=== PATIENT | female | born 1970 | race Caucasian/White ===

== ENCOUNTER 2020-04-05 10:53 | Emergency (ER) | payer OTHER, SELFPAY ==
[2020-04-05 11:04] VITALS: BP 134/74; PULSE 75; RESP 20; TEMP 37.2; O2SAT 99
--- NOTE | 2020-04-05 11:06 | ED.EAR ---
HPI - Ear Problem General Chief complaint: Ear Stated complaint: R EARACHE/CLOGGED Source: patient and RN notes reviewed Limitations: no limitations History of Present Illness HPI Narrative: The obese patient, previously mostly healthy, presents with right ear discomfort. Patient states she has 1/2-week worsening of right ear discomfort, symptoms are mild unrelieved with peroxide preparations. Has had previous otitis externa, and ceruminosis. No discharge, redness, fever, sore throat Related Data Allergies Allergy/AdvReac Type Severity Reaction Status Date / Time ampicillin Allergy Unknown Verified 08/27/18 14:15 Penicillins Allergy Unknown Verified 08/27/18 14:15 Sulfa (Sulfonamide Allergy Unknown Verified 08/27/18 14:15 Antibiotics) Canned Fish Allergy Unknown Uncoded 08/27/18 14:15 SALICYLATES Allergy Unknown Uncoded 08/27/18 14:15 seafood, vegetables Allergy Unknown Uncoded 01/04/03 12:18 SHELLFISH Allergy Unknown Uncoded 08/27/18 14:15 Review of Systems Review of Systems: Narrative: General/Constitutional: No weight loss,fever Eyes: N0: Redness,discharge Ears/Nose/Throat: No: Epistaxis,ear discharge Respiratory: Denies: Hemoptysis Gastrointestinal: No Vomiting, Bleeding-rectal Skin: No Lumps, eruption Neurologic: No Focal Weakness,Sz Hematologic: Denies: Petechiae/Purpura Psychiatric: No: Suicida ideationl All Other Systems: Reviewed and Negative PMFSH Comments At time of signature, agree with nursing past medical, surgical, social and family history. There is no relevant family history pertinent to the presenting complaint Exam Narrative: Exam Narrative: Appearance: obese/ Well nourished, No distress, no Conjunctiva injection Ears: Right EAC with cerumen, left external ear normal, Auditory canal normal Nose: Normal nose, Nares clear Mouth/Throat: Normal appearing, Normal lips, supple, Respiratory: Airway patent, No respiratory distress Skin: Warm, Dry Neurological: A&O x3, Normal affect Course Vital Signs Vital signs: Vital Signs Temperature 98.9 F 04/05/20 11:04 Pulse Rate 75 04/05/20 11:04 Respiratory Rate 20 04/05/20 11:04 Blood Pressure 134/74 04/05/20 11:04 Pulse Oximetry 99 04/05/20 11:04 Temperature 98.9 F 04/05/20 11:04 Pulse Rate 75 04/05/20 11:04 Respiratory Rate 20 04/05/20 11:04 Blood Pressure 134/74 04/05/20 11:04 Pulse Oximetry 99 04/05/20 11:04 Procedures Ear Wax Removal Right Ear: Ear Wax Removal Date: 04/05/20 Cerumenolytic Used: other (Peroxide and water) Results: Re-examined: cerumen removed completely TM Examination: TM(s) erythematous Ear Canal Exam: atraumatic Patient Tolerated Procedure: well Complications: no problems Technique: ear canal irrigated Medical Decision Making Vital Signs Vital Signs: Vital Signs Temperature 98.9 F 04/05/20 11:04 Pulse Rate 75 04/05/20 11:04 Respiratory Rate 20 04/05/20 11:04 Blood Pressure 134/74 04/05/20 11:04 Pulse Oximetry 99 04/05/20 11:04 Temperature 98.9 F 04/05/20 11:04 Pulse Rate 75 04/05/20 11:04 Respiratory Rate 04/05/20 11:04 Blood Pressure 134/74 04/05/20 11:04 Pulse Oximetry 99 04/05/20 11:04 Discharge Plan Discharge Clinical Impression: Impacted ear wax Qualifiers: Laterality: right Qualified Code(s): H61.21 - Impacted cerumen, right ear Patient Disposition: Home, Self-Care Condition: Stable Prescriptions: New [id number]-FW 3.5-10,000-1 mg/mL-unit/mL-% solution 4 drp RIGHT EAR Q8H Qty: 10 RF: 0 Follow-up/Referrals: PHYSICIAN NOT ON STAFF,NONSTAFF [Primary Care Provider] -
== END 2020-04-05 11:39 | disposition home or self-care (01) ==
PROVIDERS: Emergency Provider Emergency Medicine
DX: H61.21 Impacted cerumen, right ear (principal); E11.9 Type 2 diabetes mellitus without complications; E28.2 Polycystic ovarian syndrome
CPT/HCPCS: 69209; 99213; G0463

== ENCOUNTER 2021-12-30 13:04 | Emergency (ER) | payer BC, SELFPAY ==
--- NOTE | ~2021-12-30 | XR_ITS ---
XR chest 2V DATE: 12/30/2021 13:50 INDICATION: Productive cough for 3 days. Nonsmoker. TECHNIQUE: 2 views COMPARISON: August 27, 2018 PA and lateral chest FINDINGS: Normal heart size. No hilar or mediastinal enlargement. No pulmonary infiltrate or consolid ation, pleural effusion or pulmonary vascular congestion or pneumothorax is detected. IMPRESSION: No active cardiopulmonary disease Reviewed, dictated and finalized at location A.
[2021-12-30 13:11] VITALS: BP 135/98; PULSE 92; RESP 18; TEMP 36.6; O2SAT 99
--- NOTE | 2021-12-30 13:25 | ED.URI ---
HPI - URI/Sore Throat General Chief Complaint: Upper Respiratory Infection Stated Complaint: uri Source: patient and RN notes reviewed Mode of arrival: ambulatory Limitations: no limitations History of Present Illness HPI Narrative: 51-year-old female presented for complaint of cough, sinus congestion, sore throat, body aches, diarrhea, states temp 103.2. Denies n/v or wheezing.patient tested negative for COVID and flu the day her symptoms started. She is taking [id number] DayQuil and Advil for symptoms. She denies sick contacts. She is not vaccinated for COVID or flu. MD elicited complaint: cough Related Data Allergies Allergy/AdvReac Type Severity Reaction Status Date / Time ampicillin Allergy Unknown Anaphylaxis Verified 12/30/21 13:20 Penicillins Allergy Unknown Anaphylaxis Verified 12/30/21 13:20 Sulfa (Sulfonamide Allergy Unknown Anaphylaxis Verified 12/30/21 13:20 Antibiotics) Canned Fish Allergy Unknown Anaphylaxis Uncoded 12/30/21 13:20 SALICYLATES Allergy Unknown Anaphylaxis Uncoded 12/30/21 13:20 seafood, vegetables Allergy Unknown Anaphylaxis Uncoded 12/30/21 13:20 SHELLFISH Allergy Unknown Anaphylaxis Uncoded 12/30/21 13:20 Review of Systems Review of Systems: CONSTITUTIONAL: Endorses malaise, chills, sweats, fever EYES: Denies visual changes, redness, or discharge ENT: Reports rhinorrhea, congestion, sinus pain CARDIOVASCULAR: Denies chest pain, palpitations, edema RESPIRATORY: Reports cough, post nasal drainage. Denies dyspnea GASTROINTESTINAL: Denies abdominal pain, nausea, vomiting SKIN: Denies rash or itching MUSCULOSKELETAL: Endorses myalgia Exam Narrative: GENERAL: Ill-appearing, nontoxic EYES: conjunctivae clear ENT: Mucous membranes moist. TMs and canals erythematous with dull light reflex bilaterally; no tragal tenderness. Oropharynx erythematous without lesions or exudate, no drooling, no hoarseness, no trismus, uvula midline. CHEST: Clear to auscultation, breath sounds equal. No wheezing, rhonchi, rales, or stridor. HEART: Regular rate and rhythm. No murmur heard. SKIN: Warm, dry, no rash. NEURO: Alert and oriented x3. PSYCH: Normal mood and affect Course Course Emergency Course: Patient is aware of diagnosis, understands and agrees to treatment plan. Anticipatory guidance given. Patient agrees to follow-up as directed and is aware of reasons to seek care at the emergency department. Portions of this record may have been created with voice recognition software Level of Care: Express Care Visit Vital Signs Vital signs: Vital Signs Temperature 97.8 F 12/30/21 13:11 Pulse Rate 92 12/30/21 13:11 Respiratory Rate 18 12/30/21 13:11 Blood Pressure 135/98 H 12/30/21 13:11 Pulse Oximetry 99 12/30/21 13:11 Oxygen Delivery Room Air 12/30/21 13:11 Temperature 97.8 F 12/30/21 13:11 Pulse Rate 92 12/30/21 13:11 Respiratory Rate 18 12/30/21 13:11 Blood Pressure 135/98 H 12/30/21 13:11 Pulse Oximetry 99 12/30/21 13:11 Oxygen Delivery Room Air 12/30/21 13:11 reviewed MDM - URI/Sore Throat MDM Narrative Medical decision making narrative: cxr reviewed with patient, unremarkable. COVID test negative. She is advised on supportive treatment and follow-up with PCP. stable and appropriate for outpt treatment. Verbalizes understanding Differential Diagnosis Differential diagnosis: Likely upper respiratory infection, sinusitis and viral infection Lab Data Labs: Lab Results 12/30/21 Range/Units 13:35 POC SARS CoV-2 Ag Negative (Negative) Imaging Data Radiologist's impression: Ordering Physician: Shanta Fowler APRN Date of Service: 12/30/21 Procedure(s): XR chest 2V Accession Number(s): [id number] cc: Shanta Fowler APRN; UNKNOWN,DOCTOR~ XR chest 2V DATE: 12/30/2021 13:50 INDICATION: Productive cough for 3 days. Nonsmoker.? TECHNIQUE: 2 views? COMPARISON: August 27, 2018 PA and lateral ches
== END 2021-12-30 14:18 | disposition home or self-care (01) ==
PROVIDERS: Emergency Provider Nurse Practitioner Family
DX: J06.9 Acute upper respiratory infection, unspecified (principal); Z20.822 Contact with and (suspected) exposure to COVID-19; Z28.310 Unvaccinated for COVID-19
CPT/HCPCS: 71046; 87426; 99213; C9803; G0463

== ENCOUNTER 2022-07-30 10:08 | Emergency (ER) | payer OTHER, SELFPAY ==
--- NOTE | 2022-07-30 10:18 | ED.URI ---
HPI - URI/Sore Throat General Chief Complaint: Upper Respiratory Infection Stated Complaint: Sore Throat/ Cough Time Seen by Provider: 07/30/22 10:39 Source: patient, RN notes reviewed and old records reviewed Mode of arrival: ambulatory Limitations: no limitations History of Present Illness HPI Narrative: 51-year-old female presents to the [facility] with complaints of sore throat and cough for 10-14 days Quit smoking about a month ago Denies any chest pain or shortness of breath. Denies any abdominal pain. Denies fevers. Reports that everyone her house has similar symptoms, states her is a just been going on a little bit longer Related Data Allergies Allergy/AdvReac Type Severity Reaction Status Date / Time ampicillin Allergy Unknown Anaphylaxis Verified 12/30/21 13:20 Penicillins Allergy Unknown Anaphylaxis Verified 12/30/21 13:20 Sulfa (Sulfonamide Allergy Unknown Anaphylaxis Verified 12/30/21 13:20 Antibiotics) Canned Fish Allergy Unknown Anaphylaxis Uncoded 12/30/21 13:20 SALICYLATES Allergy Unknown Anaphylaxis Uncoded 12/30/21 13:20 seafood, vegetables Allergy Unknown Anaphylaxis Uncoded 12/30/21 13:20 SHELLFISH Allergy Unknown Anaphylaxis Uncoded 12/30/21 13:20 Review of Systems Review of Systems: All systems reviewed & are unremarkable except as noted in HPI and below Constitutional: Constitutional: Reports no additional constitutional complaints Eyes: Eyes: Reports no additional eye complaints ENT: Reports as per HPI and Reports sore throat Cardiovascular: Cardiovascular: Reports no additional cardiovascular complaints, Denies chest pain and Denies dyspnea Respiratory: Respiratory: Reports as per HPI, Denies chest congestion, Reports cough, Denies dyspnea and Denies wheezing Gastrointestinal: Gastrointestinal: Reports no additional gastrointestinal complaints, Denies abdominal pain, Denies nausea and Denies vomiting Musculoskeletal: Musculoskeletal: Reports no additional musculoskeletal complaints Integumentary/Breasts: Skin/Breast: Reports system reviewed and no additional complaints, except as docu Neurologic: Reports system reviewed and no additional complaints, except as documented Psychiatric: Psychiatric: Reports no additional psychiatric complaints Allergic/Immunologic: Allergic/Immunologic: Reports no additional allergic/immunologic complaints PMFSH Comments At the time of my signature, I reviewed and agree with the nursing past medical, surgical, social, and family history. There is no relevant family history pertinent to the patient complaint. Exam Const: General: cooperative, healthy appearing, comfortable, no acute distress, well developed, alert and well nourished Nutritional Appearance: well nourished Orientation/consciousness: patient oriented x3 Limitations: no limitations HENMT: Head: normal to inspection Ears: hearing grossly normal bilaterally and external ears normal Face/Nose/Sinus: Normal external nose present, Normal nares present, Normal nasal mucous membranes and turbinates present and normal facial exam Face and sinus: normal facial exam Mouth: Yes Normal oral and palatal mucosa present, Yes lip normal and Yes moist mucous membranes Throat: posterior oropharynx normal and uvula midline Eyes: General: appearance normal, both eyes and all related structures Alignment and Position: alignment normal Periorbital: periorbital findings normal Conjunctivae: conjunctivae normal Pupils: Equal, round and reactive pupils present EOM: EOMs intact bilaterally Neck: Neck: normal visual inspection, full ROM, no lymphadenopathy and no meningeal signs Chest: Chest palpation & inspection: normal inspection of the chest Resp: Effort & Inspection: normal respiratory effort and able to speak in complete sentences Auscultation: clear to auscultation bilaterally, no crackles, no rales, no rhonchi, no wheezes and diminished lung sounds bilateral in the lower lung [place] Other: Strong cough
[2022-07-30 10:20] VITALS: BP 140/88; PULSE 71; RESP 16; TEMP 36.6; O2SAT 98
[2022-07-30 10:21] VITALS: BP 140/88; PULSE 71; RESP 16; TEMP 36.6; O2SAT 98
== END 2022-07-30 10:55 | disposition home or self-care (01) ==
PROVIDERS: Emergency Provider Nurse Practitioner
DX: J40 Bronchitis, not specified as acute or chronic (principal)
CPT/HCPCS: 99213; G0463

== ENCOUNTER 2022-09-03 17:01 | Emergency (ER) | payer OTHER, SELFPAY ==
[2022-09-03 17:21] VITALS: BP 149/81; PULSE 94; RESP 16; TEMP 37.4; O2SAT 98
--- NOTE | 2022-09-03 17:38 | ED.SKABFB ---
HPI - Skin/Abscess/Foreign Bdy General Chief complaint: Skin/Abscess/Foreign Body Stated complaint: uri/boil under armpit Time Seen by Provider: 09/03/22 17:38 Source: patient Mode of arrival: ambulatory Limitations: no limitations History of Present Illness HPI narrative: 51-year-old female presents with complaint area to right axilla that has been off and on draining since January. She initially saw her primary care physician for this complaint and was told possible boil. Was given antibiotic and it cleared up. States since then she has taken at least 3 antibiotics for the drainage. She states she is now having increased pain to her right upper arm possible swelling. She states she was postop follow-up with her primary care physician if it had not improved she has not done that. All systems reviewed and negative except as noted above. Related Data Allergies Allergy/AdvReac Type Severity Reaction Status Date / Time ampicillin Allergy Unknown Anaphylaxis Verified 12/30/21 13:20 Penicillins Allergy Unknown Anaphylaxis Verified 12/30/21 13:20 Sulfa (Sulfonamide Allergy Unknown Anaphylaxis Verified 12/30/21 13:20 Antibiotics) Canned Fish Allergy Unknown Anaphylaxis Uncoded 12/30/21 13:20 SALICYLATES Allergy Unknown Anaphylaxis Uncoded 12/30/21 13:20 seafood, vegetables Allergy Unknown Anaphylaxis Uncoded 12/30/21 13:20 SHELLFISH Allergy Unknown Anaphylaxis Uncoded 12/30/21 13:20 Review of Systems Review of Systems: CONSTITUTIONAL: Denies fever, chills, or sweats. EYES: Denies visual changes, redness, or discharge. ENT: Denies rhinorrhea, congestion, sore throat, or otalgia. CARDIOVASCULAR: Denies chest pain, palpitations, or edema. RESPIRATORY: Denies cough or dyspnea. GASTROINTESTINAL: Denies abdominal pain, nausea, vomiting, or diarrhea. GENITOURINARY: Denies dysuria or hematuria. SKIN: Denies rash or itching. Reports drainage and pain to right axilla MUSCULOSKELETAL: Denies back pain, joint pain, or myalgia. NEUROLOGIC: Denies headache, numbness, or weakness. PSYCHIATRIC: Denies anxiety or depression. All other systems reviewed are negative, except as documented in HPI. PMFSH Comments At time of signature, agree with nursing past medical, surgical, social and family history. There is no relevant family history pertinent to the presenting complaint. Exam Narrative: GENERAL: This is a well-nourished, well-developed patient, in no apparent distress. HEAD: normocephalic, atraumatic. EYES: PERRL. Sclera clear/white. Vision is grossly intact. EARS: External ears normal NOSE: External nose normal NECK: Neck supple, non-tender without lymphadenopathy, masses or thyromegaly. CARDIOVASCULAR: Regular rate and rhythm without murmurs, gallops, or rubs. RESPIRATORY: Clear to auscultation. Breath sounds equal bilaterally. No wheezes, rales, or rhonchi. SKIN: warm, Dry, intact. small opening to R axilla, size of pencil eraser, with purulent drainage. no odor. no swelling or fluctuance concerning for abscess. tender on palpation NEURO: awake, alert, and oriented to person, place and time. There were no obvious focal neurologic abnormalities. EXTREMITIES: No joint tenderness, effusion, or edema noted. Course Course Level of Care: Express Care Visit Vital Signs Vital signs: Vital Signs Temperature 37.4 C 09/03/22 17:21 Pulse Rate 94 09/03/22 17:21 Respiratory Rate 16 09/03/22 17:21 Blood Pressure 149/81 H 09/03/22 17:21 Pulse Oximetry 98 09/03/22 17:21 Oxygen Delivery Room Air 09/03/22 17:21 Temperature 37.4 C 09/03/22 17:21 Pulse Rate 94 09/03/22 17:21 Respiratory Rate 16 09/03/22 17:21 Blood Pressure 149/81 H 09/03/22 17:21 Pulse Oximetry 98 09/03/22 17:21 Oxygen Delivery Room Air 09/03/22 17:21 reviewed MDM - Skin/Abscess/Foreign Bdy MDM Narrative Medical decision making narrative: instructed pt to follow up with her PCP [facility] to further evaluate axilla with outpatien
== END 2022-09-03 17:54 | disposition home or self-care (01) ==
PROVIDERS: Emergency Provider Nurse Practitioner Family
DX: S41.101A Unspecified open wound of right upper arm, initial encounter (principal); L08.9 Local infection of the skin and subcutaneous tissue, unspecified; X58.XXXA Exposure to other specified factors, initial encounter; E11.9 Type 2 diabetes mellitus without complications; E28.2 Polycystic ovarian syndrome
CPT/HCPCS: 99213; G0463

== ENCOUNTER 2023-10-20 10:04 | Emergency (ER) | payer OTHER, SELFPAY ==
[2023-10-20 10:23] VITALS: BP 137/86; PULSE 71; RESP 20; TEMP 36.6; O2SAT 98
--- NOTE | 2023-10-20 10:53 | ED.URI ---
HPI - URI/Sore Throat General Chief Complaint: Upper Respiratory Infection Stated Complaint: muscle aches/cramps,SOLIS,fever Time Seen by Provider: 10/20/23 10:32 Source: patient and RN notes reviewed Mode of arrival: ambulatory Limitations: no limitations History of Present Illness HPI Narrative: Patient presents today complaining of nausea, body, diarrhea, fever up to 100.3, body cramps. Symptoms began last night. Patient has been started on Doxycyline 2 days ago in the ER for hidradenitis suppurative of the right axilla. She has been drinking grape juice and water to stay hydrated. Denies vomiting. Denies blood or mucus in her stool. Three episodes of diarrhea yesterday, none today so far. Patient requesting testing for COVID and influenza. Related Data Home Medications Medication Instructions Recorded Confirmed doxycycline hyclate 100 mg capsule 100 mg PO BID 10/20/23 10/20/23 Allergies Allergy/AdvReac Type Severity Reaction Status Date / Time ampicillin Allergy Unknown Anaphylaxis Verified 10/20/23 10:19 Penicillins Allergy Unknown Anaphylaxis Verified 10/20/23 10:19 Sulfa (Sulfonamide Allergy Unknown Anaphylaxis Verified 10/20/23 10:19 Antibiotics) Canned Fish Allergy Unknown Anaphylaxis Uncoded 10/20/23 10:19 seafood, vegetables Allergy Unknown Anaphylaxis Uncoded 10/20/23 10:19 SHELLFISH Allergy Unknown Anaphylaxis Uncoded 10/20/23 10:19 Review of Systems Review of Systems: CONSTITUTIONAL: Denies chills, or sweats.+ body aches, fever, cramping EYES: Denies visual changes, redness, or discharge. ENT: Denies rhinorrhea, congestion, sore throat, or otalgia. CARDIOVASCULAR: Denies chest pain, palpitations, or edema. RESPIRATORY: Denies cough or dyspnea. GASTROINTESTINAL: Denies abdominal pain, vomiting.+ nausea, diarrhea GENITOURINARY: Denies dysuria or hematuria. SKIN: Denies rash, itching, or wounds. MUSCULOSKELETAL: Denies back pain, joint pain, or myalgia. NEUROLOGIC: Denies headache, numbness, tingling, or weakness. PSYCH: Denies depression or anxiety. [facility] Past Medical History Medical History (Updated 10/20/23 @ 10:57 by Jessy Moraes, [employer], ) Hidradenitis suppurativa History of kidney stones PCOS (polycystic ovarian syndrome) Comments At time of signature, I have reviewed and agree with nursing past medical, surgical, social and family history unless otherwise noted. Please see nursing chart for further information. There is no relevant family history pertinent to the presenting complaint Exam Narrative: GENERAL: Well-appearing, well-nourished, and in no acute distress. HEAD: Normocephalic, atraumatic. EYES: EOMI. No redness or drainage. Conjunctivae normal. ENT: Mucous membranes pink and moist. Nares clear. No rhinorrhea. TMs normal bilaterally. Throat normal. Uvula midline. NECK: Normal AROM. Supple. No lymphadenopathy. CHEST: No respiratory distress. Clear to auscultation. HEART: Regular rate and rhythm. No murmur appreciated. Normal peripheral pulses. ABDOMEN: Soft, nontender, nondistended, normal active bowel sounds. EXTREMITIES: Normal range of motion. No edema. SKIN: Warm, dry, no rash. Capillary refill normal. Normal skin turgor. NEURO: No focal deficits. Alert and oriented x3. Gait steady. PSYCH: Normal affect. No signs of depression or anxiety. Course Course Level of Care: Express Care Visit Vital Signs Vital signs: Vital Signs Temperature 97.8 F 10/20/23 10:23 Pulse Rate 71 10/20/23 10:23 Respiratory Rate 20 10/20/23 10:23 Blood Pressure 137/86 10/20/23 10:23 Pulse Oximetry 98 10/20/23 10:23 Oxygen Delivery Room Air 10/20/23 10:23 Temperature 97.8 F 10/20/23 10:23 Pulse Rate 71 10/20/23 10:23 Respiratory Rate 20 10/20/23 10:23 Blood Pressure 137/86 10/20/23 10:23 Pulse Oximetry 98 10/20/23 10:23 Oxygen Delivery Room Air 10/20/23 10:23 Reviewed MDM - URI/Sore Throat MDM Narrative Medical deci
== END 2023-10-20 10:56 | disposition home or self-care (01) ==
PROVIDERS: Emergency Provider Nurse Practitioner
DX: B34.9 Viral infection, unspecified (principal); Z20.822 Contact with and (suspected) exposure to COVID-19; E28.2 Polycystic ovarian syndrome
CPT/HCPCS: 87426; 87804; 99213; G0463

== ENCOUNTER 2023-11-10 18:57 | Emergency (ER) | payer OTHER, SELFPAY ==
[2023-11-10 19:29] VITALS: BP 126/67; PULSE 76; RESP 20; TEMP 36.7; O2SAT 99
[2023-11-10 19:34] VITALS: BP 126/67; PULSE 76; RESP 20; TEMP 36.7; O2SAT 99
--- NOTE | 2023-11-10 20:05 | ED.EAR ---
HPI - Ear Problem General Chief complaint: Ear Stated complaint: right ear pain Time Seen by Provider: 11/10/23 20:05 Source: patient Mode of arrival: ambulatory Limitations: no limitations History of Present Illness HPI Narrative: 52-year-old female presents with complaint of right ear pain. Muffled hearing. Symptoms for 2 days. Afebrile. All systems reviewed and negative except as noted above. Related Data Allergies Allergy/AdvReac Type Severity Reaction Status Date / Time ampicillin Allergy Unknown Anaphylaxis Verified 11/10/23 19:29 Penicillins Allergy Unknown Anaphylaxis Verified 11/10/23 19:29 Sulfa (Sulfonamide Allergy Unknown Anaphylaxis Verified 11/10/23 19:29 Antibiotics) Canned Fish Allergy Unknown Anaphylaxis Uncoded 11/10/23 19:29 seafood, vegetables Allergy Unknown Anaphylaxis Uncoded 11/10/23 19:29 SHELLFISH Allergy Unknown Anaphylaxis Uncoded 11/10/23 19:29 Review of Systems Review of Systems: CONSTITUTIONAL: Denies fever, chills, or sweats. EYES: Denies visual changes, redness, or discharge. ENT: Denies rhinorrhea, congestion, sore throat . Reports right ear pain. CARDIOVASCULAR: Denies chest pain, palpitations, or edema. RESPIRATORY: Denies cough or dyspnea. GASTROINTESTINAL: Denies abdominal pain, nausea, vomiting, or diarrhea. GENITOURINARY: Denies dysuria or hematuria. SKIN: Denies rash or itching. MUSCULOSKELETAL: Denies back pain, joint pain, or myalgia. NEUROLOGIC: Denies headache, numbness, or weakness. PSYCHIATRIC: Denies anxiety or depression. All other systems reviewed are negative, except as documented in HPI. [facility] Past Medical History Medical History (Updated 11/10/23 @ 20:10 by Jessica Ramsey NP) Hidradenitis suppurativa History of kidney stones PCOS (polycystic ovarian syndrome) Comments At time of signature, agree with nursing past medical, surgical, social and family history. There is no relevant family history pertinent to the presenting complaint. Exam Narrative: GENERAL: This is a well-nourished, well-developed patient, in no apparent distress. HEAD: normocephalic, atraumatic. EYES: PERRL. Sclera clear/white. Vision is grossly intact. EARS: External ears normal, R ear canal erythematous, swollen, drainage, TMs normal without perforation. Hearing grossly intact. NOSE: External nose normal NECK: Neck supple, non-tender without lymphadenopathy, masses or thyromegaly. CARDIOVASCULAR: Regular rate and rhythm without murmurs, gallops, or rubs. RESPIRATORY: Clear to auscultation. Breath sounds equal bilaterally. No wheezes, rales, or rhonchi. SKIN: warm, Dry, intact with no suspicious lesions or rash, good texture and turgor. NEURO: awake, alert, and oriented to person, place and time. There were no obvious focal neurologic abnormalities. EXTREMITIES: No joint tenderness, effusion, or edema noted. Course Course Level of Care: Express Care Visit Vital Signs Vital signs: Vital Signs Temperature 36.7 C 11/10/23 19:29 Pulse Rate 76 11/10/23 19:29 Respiratory Rate 20 11/10/23 19:29 Blood Pressure 126/67 11/10/23 19:29 Pulse Oximetry 99 11/10/23 19:29 Oxygen Delivery Room Air 11/10/23 19:29 Temperature 36.7 C 11/10/23 19:34 Pulse Rate 76 11/10/23 19:34 Respiratory Rate 20 11/10/23 19:34 Blood Pressure 126/67 11/10/23 19:34 Pulse Oximetry 99 11/10/23 19:34 Oxygen Delivery Room Air 11/10/23 19:34 reviewed Medical Decision Making MDM Narrative Medical decision making narrative: Patient is aware of diagnosis, understands and agrees to treatment plan. Anticipatory guidance given. Patient agrees to follow-up as directed and is aware of reasons to seek care at the emergency department. Portions of this record may have been created with voice recognition software Vital Signs Vital Signs: Vital Signs Temperature 36.7 C 11/10/23 19:29 Pulse Rate 76 11/10/23 19:29 Respiratory Rate 20
== END 2023-11-10 20:20 | disposition home or self-care (01) ==
PROVIDERS: Emergency Provider Nurse Practitioner Family
DX: H60.91 Unspecified otitis externa, right ear (principal); J01.90 Acute sinusitis, unspecified; E28.2 Polycystic ovarian syndrome
CPT/HCPCS: 99213; G0463